=== PATIENT | female | born 1990 | race Two or more races ===

== ENCOUNTER 2018-03-27 12:28 | Emergency (ER) | payer OTHER ==
[~2018-03-27] VITALS: Ht 162.6 cm; Wt 54.4 kg
[2018-03-27 12:35] VITALS: Ht 162.6 cm; Wt 54.4 kg
[2018-03-27 14:09] VITALS: BP 143/99
== END 2018-03-27 14:00 | disposition home or self-care (01) ==
LOC: ED 12:28
DX: M75.42 Impingement syndrome of left shoulder (principal)